=== PATIENT | female | born 1945 | race Caucasian/White ===

== ENCOUNTER 2022-11-28 20:05 | Inpatient (IN) | payer OTHER ==
[~2022-11-28] VITALS: Ht 157.5 cm; Wt 43.0 kg
[2022-11-28] MEDS ORDERED: PROPOFOL 100 ML IV ONE (20:15)
[2022-11-28] MEDS ORDERED: SUCCINYLCHOLINE CHLORIDE 200 MG/10 ML VIAL IV ONE (20:15)
[2022-11-28] MEDS ORDERED: ETOMIDATE 20 MG/10 ML VIAL IV ONE (20:15)
[2022-11-28] MEDS ORDERED: levoFLOXacin 750MG/D5W 150 ML IV ONE ×2 (20:15→20:36)
[2022-11-28 20:58] LABS: HEMATOCRIT 32.3 % (31.2-41.9); MEAN CORPUSCULAR HEMOGLOBIN 20.5 uug (24.7-32.8); MEAN CORPUSCULAR VOLUME 68.7 fL (75.5-95.3); PLATELET COUNT (AUTO) 496 K/uL (179-408)
[2022-11-28 21:09] LABS: CARBON DIOXIDE 24 mmol/L (21-32); CHLORIDE 96 mmol/L (98-107); CREATININE 0.4 mg/dL (0.6-1.3); GLUCOSE 106 mg/dL (74-106); POTASSIUM 5.6 mmol/L (3.5-5.1); UREA NITROGEN, BLOOD 25 mg/dL (7-18)
[2022-11-28 21:21] LABS: ALANINE AMINOTRANSFERASE 22 U/L (14-59); ALKALINE PHOSPHATASE 311 U/L (50-136); ASPARTATE AMINOTRANSFERASE 45 U/L (15-37); BILIRUBIN,DIRECT 0.1 mg/dL (0.0-0.2); BILIRUBIN,TOTAL 0.9 mg/dL (0.2-1.0); TOTAL PROTEIN, SERUM 7.6 g/dL (6.4-8.2)
[2022-11-28 21:30] LABS: *BILIRUBIN,URIN NEGATIVE (NEGATIVE); *BLOOD, URINE NEGATIVE (NEGATIVE); *CLARITY,URINE CLEAR (CLEAR); *COLOR,URINE YELLOW (YELLOW); *KETONES,URINE 3+ (NEGATIVE); *UROBILINOGEN,URINE 0.2 E.U./dl (NORMAL); LEUKOCYTE ESTERASE ,URINE NEGATIVE (NEGATIVE); NITRITE, URINE POSITIVE (NEGATIVE); PH,URINE 5.5 (5.0-8.0); UGLUCOSE NEGATIVE (NEGATIVE)
[2022-11-28 21:31] LABS: BACTERIA,URINE FEW /HPF (NONE SEEN); RBC,URINE 0-3 /HPF (0-3); WBC,URINE 0-3 /HPF (0-3)
[2022-11-28 21:36] LABS: ABG BASE EXCESS -4.6 mmol/L; ABG HCO3 19.5 mmol/L; ABG PCO2 32.4 mmHg (35.0-45.0); ABG PH 7.398 (7.350-7.450); ABG PO2 217.9 mmHg (75.0-100.0); ABG SITE LEFT RADIAL; ABG TOTAL HEMOGLOBIN 10.1 G/dL (12.0-16.0); COHb 0.5 % (0.5-1.5); MetHb 0.1 % (0.0-1.5); O2Hb 98.9 % (94.0-97.0); VENT MODE VENT - A/C; VT, ABG 500 mL
[2022-11-28] MEDS ORDERED: IV NORMAL SALINE 1000 ML BAG IV ONE (21:45)
[2022-11-28] MEDS ORDERED: CARV6.252 PO (21:49)
[2022-11-28] MEDS ORDERED: PRED2.5T PO (21:49)
[2022-11-28] MEDS ORDERED: HYDR-4209 PO (21:49)
[2022-11-28] MEDS ORDERED: ALEN70TA80 PO (21:49)
[2022-11-28] MEDS ORDERED: ASPI81TA31 PO (21:49)
[2022-11-28] MEDS ORDERED: ALBU18HF2 IH (21:49)
[2022-11-28] MEDS ORDERED: MEGE400O5 PO (21:49)
[2022-11-28] MEDS ORDERED: IPRA0.2S48 NEB (21:49)
--- NOTE | 2022-11-28 22:03 | NUR ---
called [facility] for panel call. Awaiting for Dr Boudreaux hospitalist on-call to call back
--- NOTE | 2022-11-28 22:50 | NUR ---
report given to Smiley RN - CCU
[2022-11-28] MEDS ORDERED: ENOXAPARIN SODIUM 40 MG/0.4 ML DISP.SYRIN SQ ONE (23:09)
--- NOTE | 2022-11-28 23:11 | NUR ---
Patient taken to CT scan in stable condition via gurney accompanied by RN and 2 RTs
[2022-11-28] MEDS ORDERED: IV NORMAL SALINE 250 ML IV ONE (23:13)
[2022-11-28] MEDS ORDERED: SWABABLE VALVE TRANSFER SET EA MC ONE (23:13)
[2022-11-28] MEDS ORDERED: IOHEXOL 350 100 ML INFUS..BTL ONE (23:13)
[2022-11-28] MEDS ORDERED: ENOXAPARIN SODIUM 40 MG/0.4 ML DISP.SYRIN SQ SCH (23:15)
[2022-11-28] MEDS ORDERED: VANCOMYCIN IV 750 MG in IV DEXTROSE 5% 250 ML IV ONE (23:30)
--- NOTE | 2022-11-28 23:45 | NUR ---
Pt. admitted to CCU bed 3 , under care of Dr. Boudreaux Belongs List completed Negra RN and Smiley RN aware of patient's arrival
[2022-11-29] VITALS (40 sets, daily range): BP systolic 78–130; BP diastolic 41–78
--- NOTE | 2022-11-29 00:02 | NUR ---
Received pt from [facility] via [facility]. Patient fully awake and attempting to reach out ETT. On mechanical ventilator A/C18, Tv 500, FIO2 50%, ETT 7.0 21cm Lip line. saturation of 97%. No tachypnea noted, saez to gravity vitals of 97.3 body temp NSR 80's 113/78. Attending called and notified of pt's arrival to the unit. Orders received and implemented.
[2022-11-29] MEDS ORDERED: VANCOMYCIN 1000 MG VIAL ONE (00:14)
[2022-11-29] MEDS ORDERED: PIPERACILLIN/TAZOBACTAM/D5W 50 ML IV ONE (00:15)
[2022-11-29] MEDS: IV D5/ 0.9% NACL 1,000 ML IV PRN ×2 (00:17→17:19)
[2022-11-29] MEDS: PROPOFOL 100 ML IV PRN ×4 (00:28→22:34)
[2022-11-29] MEDS ORDERED: PIPERACILLIN SODIUM/TAZOBACTAM 3.375 G in IV DEXTROSE 5% 50 ML IV SCH ×2 (01:00→09:00)
[2022-11-29 05:01] LABS: HEMATOCRIT 25.4 % (31.2-41.9); MEAN CORPUSCULAR HEMOGLOBIN 21.2 uug (24.7-32.8); MEAN CORPUSCULAR VOLUME 67.7 fL (75.5-95.3); PLATELET COUNT (AUTO) 390 K/uL (179-408)
[2022-11-29 05:22] LABS: IRON, SERUM 10 ug/dL (50-175)
[2022-11-29 05:23] LABS: ALANINE AMINOTRANSFERASE 20 U/L (14-59); ALKALINE PHOSPHATASE 236 U/L (50-136); ASPARTATE AMINOTRANSFERASE 52 U/L (15-37); BILIRUBIN,TOTAL 0.6 mg/dL (0.2-1.0); CARBON DIOXIDE 22 mmol/L (21-32); CHLORIDE 99 mmol/L (98-107); CREATININE 0.4 mg/dL (0.6-1.3); GLUCOSE 90 mg/dL (74-106); MAGNESIUM 1.5 mg/dL (1.8-2.4); PHOSPHOROUS 2.3 mg/dL (2.5-4.9); POTASSIUM 3.4 mmol/L (3.5-5.1); TOTAL PROTEIN, SERUM 5.8 g/dL (6.4-8.2); UREA NITROGEN, BLOOD 22 mg/dL (7-18)
[2022-11-29 05:27] LABS: THYROID STIMULATING HORMONE 1.252 mIU/mL (0.358-3.740)
[2022-11-29 05:51] LABS: CHOLESTEROL 260 mg/dL (<200); HDL CHOLESTEROL 27 mg/dL (40-60); TRIGLYCERIDES 140 MG/DL (30-150)
[2022-11-29 08:15] LABS: ABG BASE EXCESS -2.9 mmol/L; ABG HCO3 20.5 mmol/L; ABG PH 7.452 (7.350-7.450); ABG PO2 79.1 mmHg (75.0-100.0); ABG SITE RIGHT RADIAL; ABG TOTAL HEMOGLOBIN 8.9 G/dL (12.0-16.0); COHb 1.2 % (0.5-1.5); MetHb 0.3 % (0.0-1.5); O2Hb 94.3 % (94.0-97.0); VENT MODE VENT - A/C; VT, ABG 500 mL
[2022-11-29] MEDS: PANTOPRAZOLE SODIUM 40 MG VIAL IV SCH (08:27)
[2022-11-29] MEDS: MAGNESIUM SULFATE/D5W 100 ML IV SCH ×2 (08:27→09:25)
[2022-11-29] MEDS: PIPERACILLIN SODIUM/TAZOBACTAM 3.375 G in IV DEXTROSE 5% 100 ML IV SCH ×2 (08:27→17:14)
[2022-11-29] MEDS ORDERED: POTASSIUM PHOSPHATE MM 15 MMOL in IV NORMAL SALINE 250 ML IV ONE (09:00)
--- NOTE | 2022-11-29 10:23 | NUR ---
WOUND CARE CONSULT: PT PRESENTS WITH CACHEXIA, SACRAL DEEP TISSUE INJURY IN EVOLUTION, PRESENT ON ADMISSION. RECOMMENDATIONS MADE FOR SKIN PROTECTION AND WOUND CARE. DISCUSSED WITH NURSING STAFF. DR PRIETO CALLED FOR SURGICAL CONSULT. IN AGREEMENT WITH PLAN OF CARE. Addendum: 11/29/22 at 1026 by MIGUELANGEL RESTREPO RN Amended: Links added.
[2022-11-29] MEDS ORDERED: REMEDY ESSENTIAL ZINC PASTE 113 GM TOP PRN (10:30)
[2022-11-29] MEDS: MORPHINE SULFATE 2 MG/1 ML DISP.SYRIN IV PRN (13:37)
[2022-11-29 15:18] LABS: HEMATOCRIT 24.8 % (31.2-41.9)
[2022-11-29 15:46] LABS: FERRITIN 471 ng/mL (8-252)
--- NOTE | 2022-11-29 15:50 | NUR ---
REPORT GIVEN TO NEERAJ PACHECO
[2022-11-29] MEDS: ACETAMINOPHEN 650 MG SUPP.RECT RC PRN (20:09)
[2022-11-29] MEDS: VANCOMYCIN IV 500 MG in IV DEXTROSE 5% 100 ML IV SCH (23:26)
[2022-11-30] VITALS (24 sets, daily range): BP systolic 102–124; BP diastolic 54–85
[2022-11-30] MEDS: PIPERACILLIN SODIUM/TAZOBACTAM 3.375 G in IV DEXTROSE 5% 100 ML IV SCH ×3 (00:49→15:02)
[2022-11-30] MEDS: MORPHINE SULFATE 2 MG/1 ML DISP.SYRIN IV PRN ×3 (02:40→21:14)
[2022-11-30 04:56] LABS: HEMATOCRIT 24.9 % (31.2-41.9); MEAN CORPUSCULAR VOLUME 67.4 fL (75.5-95.3); PLATELET COUNT (AUTO) 321 K/uL (179-408)
[2022-11-30 05:18] LABS: ALANINE AMINOTRANSFERASE 17 U/L (14-59); ALKALINE PHOSPHATASE 229 U/L (50-136); ASPARTATE AMINOTRANSFERASE 100 U/L (15-37); BILIRUBIN,TOTAL 0.8 mg/dL (0.2-1.0); CARBON DIOXIDE 24 mmol/L (21-32); CHLORIDE 106 mmol/L (98-107); CREATININE 0.4 mg/dL (0.6-1.3); GLUCOSE 111 mg/dL (74-106); MAGNESIUM 1.8 mg/dL (1.8-2.4); PHOSPHOROUS 2.8 mg/dL (2.5-4.9); TOTAL PROTEIN, SERUM 5.7 g/dL (6.4-8.2); UREA NITROGEN, BLOOD 8 mg/dL (7-18)
[2022-11-30 05:26] LABS: POTASSIUM 2.8 mmol/L (3.5-5.1)
[2022-11-30] MEDS: PROPOFOL 100 ML IV PRN ×3 (06:06→21:15)
--- NOTE | 2022-11-30 06:50 | NUR ---
END OF SHIFT SUMMARY Pt received in bed bed, intubated and sedated on propofol. Pt is easily arousable with tactile stimulation. Pt. seems comfortable. Pt's family visited at 20:00, they will return to speak to Dr. Boudreaux around 10AM on Sunday11/30/22. Pt appeared in pain x1 in shift. She received Morphine. Pt had critical labs- K+ is 2.8. I called [facility] and I am awaiting orders. Will be endorsed to dayshift RN. Vital signs stable at end of shift BP 105/57
[2022-11-30 07:06] LABS: *IMMUNOGLOBULIN G, SERUM 874 mg/dL (586-1602); IMMUNOGLOBULIN M, SERUM 191 mg/dL (26-217)
[2022-11-30] MEDS ORDERED: POTASSIUM CHLORIDE 20 MEQ POWDER PACKET GT ONE (07:30)
--- NOTE | 2022-11-30 07:30 | NUR ---
Received patient intubated with settings of AC 18, TV 500, FIO2 30% and PEEP 5. VSS and pt is NSR resting comfortably no s/s of pain and easily arousable on 40mcg/kg/min
[2022-11-30] MEDS ORDERED: SUCCINYLCHOLINE CHLORIDE 200 MG/10 ML VIAL IV ONE (07:31)
[2022-11-30] MEDS ORDERED: ETOMIDATE 20 MG/10 ML VIAL IV ONE (07:31)
[2022-11-30] MEDS: POTASSIUM CHLORIDE 50 ML IV SCH ×4 (07:48→10:52)
--- NOTE | 2022-11-30 08:00 | NUR ---
Dr Ching saw the patient and had previously ordered GT and IV replacement potassium. I informed him that the patient doesn't have a GT or NGT. He ordered the insertion of NGT or OGT.
[2022-11-30] MEDS: PANTOPRAZOLE SODIUM 40 MG VIAL IV SCH (08:09)
[2022-11-30 08:21] LABS: ABG BASE EXCESS -1.4 mmol/L; ABG HCO3 22.4 mmol/L; ABG PH 7.437 (7.350-7.450); ABG SITE RIGHT RADIAL; ABG TOTAL HEMOGLOBIN 8.8 G/dL (12.0-16.0); COHb 1.3 % (0.5-1.5); MetHb 0.3 % (0.0-1.5); O2Hb 94.8 % (94.0-97.0); VT, ABG 500 mL
--- NOTE | 2022-11-30 09:00 | NUR ---
Dr Alcala saw patient and informed me that he wanted to do weaning trials in the morning.
[2022-11-30 13:06] LABS: A/G RATIO 0.6 (0.7-1.7); ALPHA-1-GLOBULIN 0.4 g/dL (0.0-0.4); ALPHA-2-GLOBULIN 0.8 g/dL (0.4-1.0); BETA GLOBULIN 0.9 g/dL (0.7-1.3); GLOBULIN, TOTAL 3.1 g/dL (2.2-3.9); M-SPIKE Not Observed g/dL (Not Observed)
[2022-11-30] MEDS: SOD FERRIC GLUC COMPLX/SUCROSE 125 MG in IV NORMAL SALINE 100 ML IV SCH (13:14)
[2022-11-30] MEDS: IV D5/ 0.9% NACL 1,000 ML IV PRN (18:17)
[2022-11-30] MEDS: VANCOMYCIN IV 500 MG in IV DEXTROSE 5% 100 ML IV SCH (21:14)
[2022-11-30] MEDS: ACETAMINOPHEN 650 MG SUPP.RECT RC PRN (21:25)
[2022-12-01] VITALS (24 sets, daily range): BP systolic 96–194; BP diastolic 51–163
[2022-12-01] MEDS: PIPERACILLIN SODIUM/TAZOBACTAM 3.375 G in IV DEXTROSE 5% 100 ML IV SCH ×3 (00:16→15:15)
[2022-12-01 04:53] LABS: HEMATOCRIT 21.5 % (31.2-41.9); MEAN CORPUSCULAR HEMOGLOBIN 21.2 uug (24.7-32.8); MEAN CORPUSCULAR VOLUME 67.6 fL (75.5-95.3); PLATELET COUNT (AUTO) 307 K/uL (179-408)
[2022-12-01 05:09] LABS: CARBON DIOXIDE 23 mmol/L (21-32); CHLORIDE 107 mmol/L (98-107); CREATININE 0.3 mg/dL (0.6-1.3); GLUCOSE 111 mg/dL (74-106); MAGNESIUM 1.7 mg/dL (1.8-2.4); PHOSPHOROUS 2.1 mg/dL (2.5-4.9); POTASSIUM 3.2 mmol/L (3.5-5.1); UREA NITROGEN, BLOOD 7 mg/dL (7-18)
[2022-12-01] MEDS: ACETAMINOPHEN 650 MG SUPP.RECT RC PRN (05:37)
[2022-12-01] MEDS: PROPOFOL 100 ML IV PRN (05:38)
--- NOTE | 2022-12-01 06:42 | NUR ---
Received patient in bed sedated. Pt appeared agitated and uncomfortable. 2mg Morphine administered. Pt remained comfortable throughout the night. Pt continues to have copious yellow secretions suctioned via ETT and thin white secretions suctioned orally. Pt spiked a low grade fever at 99.4 x 2 times during the shift. Acetaminophen 650 mg administered rectally. Propofol reduced to 20 mcg/kg/min at 06:30 then the propofol turned off at 0745 in preparation for weaning trials in the morning. Vital signs stable at the end of shift. Report endorsed to day shift RN.
--- NOTE | 2022-12-01 07:13 | NUR ---
Self-Extubation At 703am Pt self extubated. RT called to the bedside. Pt suctioned and placed on a Non-Rebreather mask. Vital sigs are HR: 100, RR 13, SPO2 100% on NRM and BP is 134/84. Report endorsed to day shift RN.
--- NOTE | 2022-12-01 07:20 | NUR ---
Received patient from night cleaner nurse. Patient has just self extubated prior to my arrival on the unit. She is tachypnic and have placed her on nonrebreather mask to maintain her saturation. Her sats have been maintained above 90% with respiratory rate in the 30's to 40's. Dr Alcala was notified about the extubation and RT. Pt had been scheduled for weaning trials this morning. She is tolerating the nonrebreather mask at this time.
[2022-12-01] MEDS ORDERED: POTASSIUM CHLORIDE 20 MEQ POWDER PACKET GT ONE (07:30)
--- NOTE | 2022-12-01 07:35 | NUR ---
Dr Alcala informed about the pt self extubating.
[2022-12-01] MEDS: IV D5/ 0.9% NACL 1,000 ML IV PRN (07:43)
[2022-12-01] MEDS: POTASSIUM CHLORIDE 50 ML IV SCH ×4 (07:46→11:15)
--- NOTE | 2022-12-01 08:00 | NUR ---
Dr Us saw the patient and notified about patients potassium and that she doesn't have an NG tube any more and probably unable to swallow. He ordered to just give the IV potassium part of his order.
[2022-12-01] MEDS: PANTOPRAZOLE SODIUM 40 MG VIAL IV SCH (08:28)
[2022-12-01] MEDS: MAGNESIUM SULFATE/D5W 100 ML IV SCH ×2 (08:29→09:32)
--- NOTE | 2022-12-01 09:00 | NUR ---
Dr Alcala say the pateitn and updated about the extubation and the results of the ABG. All questions answered
[2022-12-01] MEDS: MORPHINE SULFATE 2 MG/1 ML DISP.SYRIN IV PRN ×2 (09:09→17:17)
[2022-12-01 09:40] LABS: ABG BASE EXCESS -3.2 mmol/L; ABG HCO3 21.1 mmol/L; ABG PCO2 34.4 mmHg (35.0-45.0); ABG PH 7.405 (7.350-7.450); ABG PO2 174.9 mmHg (75.0-100.0); ABG SITE LEFT BRACHIAL; ABG TOTAL HEMOGLOBIN 9.1 G/dL (12.0-16.0); COHb 0.7 % (0.5-1.5); MetHb 0.1 % (0.0-1.5); O2Hb 98.2 % (94.0-97.0)
[2022-12-01] MEDS ORDERED: POTASSIUM PHOSPHATE MM 15 MMOL in IV NORMAL SALINE 250 ML IV ONE (10:00)
--- NOTE | 2022-12-01 10:30 | NUR ---
Dr Boudreaux spoke with family and pt's daughter Linda and she informed me that she had decided against the blood transfusion.
[2022-12-01] MEDS: SOD FERRIC GLUC COMPLX/SUCROSE 125 MG in IV NORMAL SALINE 100 ML IV SCH (14:02)
--- NOTE | 2022-12-01 18:12 | NUR ---
Informed Dr Boudreaux that pt's daughter was talking to the patient and that they wanted to start the morphine drip that she had discussed with Dr Boudreaux during their previous meeting. Dr Boudreaux said that he would enter the orders "shortly".
[2022-12-01] MEDS: MORPHINE SULFATE PF IV DRIP 100 MG in IV DEXTROSE 5% 96 ML IV PRN (19:59)
[2022-12-01] MEDS ORDERED: LORAZEPAM 2 MG/1 ML VIAL ONE (20:57)
[2022-12-01] MEDS ORDERED: LORAZEPAM 2 MG/1 ML VIAL IV PRN (21:45)
[2022-12-02] VITALS (22 sets, daily range): BP systolic 72–127; BP diastolic 42–73
--- NOTE | 2022-12-02 06:39 | NUR ---
Received pt on Nasal Canula. Pt is groaning and acutely distressed. Daughter is at bedside. Dr. Boudreaux ordered a morphine gtt and to discontinue all other meds. Morpine gtt initiated with daughter at the bedside. Pt is still complaining of generalized pain. [facility] provider addiction psychiatrist Cate Medeiros updated with patients condition. Ativan 1mg per hour PRN ordered for agitation. Pt relaxed after the ativan was administered. Daughter went home after pt fell asleep. Pt remained comfortable throughout the night. Vital signs stable. 6AM vitals HR 108, BP 111/61. SPO2 98%, RR 22. Pt is drowsy but arousable. Report endorsed to Ezekiel RN.
--- NOTE | 2022-12-02 07:20 | NUR ---
Received patient vital sighs stable and tachycardic at 105. Patient is resting comfortably on morphine drip at 4mg/hr RR 20 oxygen saturation is 98% on 3 L/min by nasal canula
--- NOTE | 2022-12-02 09:30 | NUR ---
Dr Boudreaux called and was updated about the patients condition and morpine drip rate. He ordered to increase the rate of the drip to 6mg/hour. Rate increased and is still resting comfortably
--- NOTE | 2022-12-02 13:38 | NUR ---
Spoke with Dr Boudreaux about patients condition prior to leaving for lunch. Registry nurse increased the morphine drip to 8mg/hr as ordered by Dr Boudreaux while I was off the unit.
[2022-12-02] MEDS: MORPHINE SULFATE PF IV DRIP 100 MG in IV DEXTROSE 5% 96 ML IV PRN (17:10)
[2022-12-03] VITALS (9 sets, daily range): BP systolic 60–73; BP diastolic 31–38
[2022-12-03] MEDS: MORPHINE SULFATE PF IV DRIP 100 MG in IV DEXTROSE 5% 96 ML IV PRN ×2 (05:54→17:42)
--- NOTE | 2022-12-03 06:37 | NUR ---
Received patient on morphine gtt at 8mg/hr. Pt is sedated and she is not in distress. Daughter and son in law is at bedside. Supportive care given to patient. Pt had an uneventful night. At 06:30 Vital signs are BP 65/35, HR 111, RR 6, SPO2 94%. Pt is anuric and NPO at this point.
--- NOTE | 2022-12-03 08:53 | NUR ---
Dr. Alacla and Dr. Boudreaux at bedside at 0830. Pt downgraded to Med Surge status. Report endorsed to Kevin Gómez RN. Pt is transferred to MS room 317.
--- NOTE | 2022-12-03 16:52 | NUR ---
Received 2 bags of morphine 100mg each from director of pharmacy. Extra bag for scene shifter given to Leslie Willoughby nursing supervisor maintenance for safe keeping in the office during the night until needed. Lonnie (charge nurse) and Micah (pharmacist) notified of disposition of extra morphone bag. Kept one bag to hang as a replacement for the one that is almost empty at this time. Will endorse to scene shifter the location of the extra bag. Dr Boudreaux informed of patient's condition in the nursing office.
--- NOTE | 2022-12-03 19:20 | NUR ---
VS BP 43/19 Temp 96.0 Resp 6 HR 91. O2 3L via NC sating @ 90%. FC intact 0 output. On morphine drip. Addendum: 12/03/22 at 2330 by ARLEN STEVENSON RN Patient is DNR/DNI. Daughter at bedside.
--- NOTE | 2022-12-03 22:00 | NUR ---
Post mortem care rendered, placed in a body bag and labeled.
--- NOTE | 2022-12-03 22:40 | NUR ---
No audible heart sounds, no breath sounds, no chest rise and fall, pupils were fixed and dilated. Patient DNR/DNI, on morphine drip. Pronounced by Gisela Oviedo RN. Daughter at bedside. Addendum: 12/03/22 at 2333 by ARLEN STEVENSON RN Time of charting 2039
--- NOTE | 2022-12-03 23:10 | NUR ---
[facility] was called spoke to Kiley Kunz with Case # [id number].
--- NOTE | 2022-12-03 23:56 | NUR ---
[place] [facility] [place] and [place]
== END 2022-12-03 23:55 | DRG 720 ==
LOC: ER 20:05 → CCU 22:55 → MEDSURG3 12-03 09:06
PROVIDERS: ADMIT Internal Medicine; ATTEND Internal Medicine
PROC: 0BH17EZ Insertion of Endotracheal Airway into Trachea, Via Natural or Artificial Opening (ICD-10-PCS; principal; 2022-11-28)
PROC: 5A1945Z Respiratory Ventilation, 24-96 Consecutive Hours (ICD-10-PCS; principal; 2022-11-28)
PROC: 0DH673Z Insertion of Infusion Device into Stomach, Via Natural or Artificial Opening (ICD-10-PCS; 2022-11-30)
DX: A41.9 Sepsis, unspecified organism (principal); J96.01 Acute respiratory failure with hypoxia; R65.21 Severe sepsis with septic shock; G93.40 Encephalopathy, unspecified; E43 Unspecified severe protein-calorie malnutrition; C78.02 Secondary malignant neoplasm of left lung; C78.01 Secondary malignant neoplasm of right lung; J18.8 Other pneumonia, unspecified organism; E27.8 Other specified disorders of adrenal gland; E83.39 Other disorders of phosphorus metabolism; Z66 Do not resuscitate; Z51.5 Encounter for palliative care; E87.1 Hypo-osmolality and hyponatremia; R62.7 Adult failure to thrive; C34.90 Malignant neoplasm of unspecified part of unspecified bronchus or lung; C80.1 Malignant (primary) neoplasm, unspecified; Z20.822 Contact with and (suspected) exposure to COVID-19; C78.7 Secondary malignant neoplasm of liver and intrahepatic bile duct; E83.42 Hypomagnesemia; E87.5 Hyperkalemia; E87.6 Hypokalemia; Z68.1 Body mass index [BMI] 19.9 or less, adult; N39.0 Urinary tract infection, site not specified; B96.20 Unspecified Escherichia coli [E. coli] as the cause of diseases classified elsewhere; S30.0XXA Contusion of lower back and pelvis, initial encounter; X58.XXXA Exposure to other specified factors, initial encounter; Y92.89 Other specified places as the place of occurrence of the external cause; D50.9 Iron deficiency anemia, unspecified; M81.0 Age-related osteoporosis without current pathological fracture; Z87.01 Personal history of pneumonia (recurrent); I11.9 Hypertensive heart disease without heart failure; R94.31 Abnormal electrocardiogram [ECG] [EKG]; I51.89 Other ill-defined heart diseases
CPT/HCPCS: 36415; 36600; 71045; 71275; 82378; 82784; 83550; 83605; 83735; 84100; 84155; 84165; 84443; 84484; 85018; 85025; 85730; 86334; 86850; 86900; 86901; 87040; 93005; 93307; 94002; 94003; 94760; A4663; C9113; G0378; J0330; J1650; J1956; J2060; J2270; J2274; J2543; J2916; J3370; J3475; J3480; J3490; J7040; J7042; J7050; Q9967